=== PATIENT | male | born 1940 | race Caucasian/White ===

== ENCOUNTER 2018-10-29 07:08 | Inpatient (IN) ==
--- NOTE | 2018-10-29 07:47 | PROVIDER DOCUMENTATION ---
HPI-General Adult - General Chief Complaint: Cold Symptoms Stated Complaint: COUGH,FEVER Time Seen by Provider: 10/29/18 07:33 Source: patient, family Allergies/Adverse Reactions: Patient Allergies Allergy/AdvReac Type Severity Reaction Status Date / Time No Known Allergies Allergy Verified 10/29/18 07:37 Home Medications: Home Medication List Medication Instructions Recorded Confirmed Last Taken Type ATORVAstatin [Lipitor] 10 mg PO DAILY 11/05/12 10/29/18 10/28/18 History Aspirin 81 mg PO DAILY 11/05/12 10/29/18 10/28/18 History Hydrochlorothiazide 25 mg PO DAILY 11/05/12 10/29/18 10/28/18 History Amlodipine [Norvasc] 10 mg PO DAILY 10/04/18 10/29/18 10/28/18 History Metformin [Glucophage] 500 mg PO BID CC 10/04/18 10/29/18 10/28/18 History Tamsulosin [Flomax] 0.4 mg PO BID 10/04/18 10/29/18 10/28/18 History - History of Present Illness -Gen Adult Nature of Presenting Problems: patient complained sweating, hacking cough and stumbling since last night, no pain was reported. in addtion, patient complained urinary frequency with dysuria and urgency, history of recent bladder surgery. no fever was reported. Pain Radiation: reports: no radiation Quality of Pain: reports: none Onset/Duration: reports: 2 days ago Timing: reports: still present Context/Activities at Onset: reports: cold exposure Modifying Factors: improves with: nothing Associated Symptoms: reports: cough, diarrhea, genitourinary problems, malaise. denies: anxiety, arm pain, back/neck pain, chest pain, constipation, dizziness , EENT symptoms, fatigue, fever/chills, headaches, heartburn, joint pain, sinus congestion/drainage, nausea, seizure, shortness of breath, sensory/motor loss, pain with inspiration, swelling/mass in abdomen, syncope, vomiting Similar Symptoms Previously?: No Recently seen or treated by another doctor?: No - Diabetes Related Context Context: denies: prior DKA hospitalization Review of Systems - Adult - REVIEW OF SYSTEMS - ADULT Constitutional: reports: chills. denies: fever Eyes: reports: no symptoms reported Ears, Nose, Mouth & Throat: reports: no symptoms reported Cardiovascular: reports: no symptoms reported Respiratory: reports: cough Gastrointestinal: reports: diarrhea Genitourinary: reports: dysuria, urgency Musculoskeletal: reports: no symptoms reported Integumentary: reports: no symptoms reported Neurological: reports: no symptoms reported Psychiatric: reports: no symptoms reported. denies: anxiety Endocrine: reports: no symptoms reported Hematologic/Lymphatic: reports: no symptoms reported Allergic/Immunologic: reports: no symptoms reported Past History - Adult - PAST MEDICAL HISTORY-ADULT Review of Records: reports: Nursing Assessment Review Cardiovascular: reports: HTN. denies: cardiac disease, CAD, CHF Respiratory: denies: asthma, bronchitis, COPD Gastrointestinal: denies: cholelithiasis Musculoskeletal: denies: arthritis, fibromyalgia Neurological: denies: cognitive dysfunction, CVA Psychiatric: reports: denies history Endocrine/Immune: reports: Diabetes - PRIOR SURGERIES/PROCEDURES Surgical/Procedure History: denies: CABG - SOCIAL HISTORY Smoking: non-smoker Substance Use: none/never Alcohol Use Frequency: never Physical Exam-General - PHYSICAL EXAM-ADULT Initial Vital Signs Reviewed: Yes - CONSTITUTIONAL General Appearance: appears well, alert, no apparent distress - EYES Eyes: PERRL/EOMI - HEAD, EARS, NOSE, MOUTH & THROAT HENMT: normocephalic/atraumatic. 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, grossly normal, no motor/sensory deficits - PSYCHIATRIC Psych/Mental Status: normal mood/affect Progress - PLAN OF CARE/RESULTS Progress/Plan/Lab Results: Vital Signs - 8 hr 10/29/18 07:16 Temperature 97.6 F Pulse Rate 127 H Respiratory Rate 18 Blood Pressure 158/90 O2 Sat by Pulse Oximetry 97 Result Diagrams: 10/29/18 08:00 10/29/18 08:00 Departure - Departure Date of Disposition Decision: 10/29/18 Time of Disposition Decision: 08:21 DIAGNOSIS: UTI (urinary tract infection), Leukocytosis Disposition: ADMITTED INPATIENT 09 Certified Medical Emergency: Emergent Condition: Stable - Critical Care Note This patient required my direct & personal management of CC.: No Attestation - Physician/ BIJAL Attestation The physician spent face to face time with patient:: Yes Advanced Practice Provider documentation review:: Supervising physician onsite and consulted in the evaluation and care of this patient. The physician did have a face to face encounter with the patient.
[2018-10-29 08:15] LABS: URINE SOURCE CLEAN CATCH
[2018-10-29 08:31] LABS: ALB/GLOB RATIO 1.1; ALBUMIN 3.8 g/dL (3.5-5.0); CALCIUM 9.5 mg/dL (8.8-10.2); CREATININE 1.4 mg/dL (0.7-1.2); POTASSIUM 4.2 mmol/L (3.5-5.1); TOTAL BILIRUBIN 0.76 mg/dL (0.20-1.00); TOTAL PROTEIN 7.4 g/dL (6.3-8.3)
[2018-10-29 08:42] LABS: BASO# 0.01 X1000 (0.0-0.2); HEMATOCRIT 43.9 % (42.0-52.0); HEMOGLOBIN 14.5 g/dL (14.0-18.0); IMM GRAN# 0.07 X1000 (0.0-0.04); IMM GRAN% 0.3 % (0.0-0.5); LYMPH# 1.63 X1000 (1.2-3.4); LYMPH% 7.8 % (20.5-51.1); MCH 28.7 PG (27-31); MCV 86.9 FL (81-99); MONO# 1.46 X1000 (0.11-0.59); MPV 9.7 FL (7.4-10.4); NEUT# 17.77 X1000 (1.4-6.5); NEUT% 84.9 % (42.2-75.2); PLT 321 X1000 (130-400); RBC 5.05 XMIL (4.7-6.1); RDW 13.7 % (11.5-14.5); WBC 20.94 X1000 (4.8-10.8)
[2018-10-29 08:43] LABS: BILIRUBIN URINE NEGATIVE (NEGATIVE); BLOOD URINE MODERATE (NEGATIVE); COLOR ORANGE; GLUCOSE URINE NEGATIVE (NEGATIVE); KETONE URINE NEGATIVE (NEGATIVE); LEUKOCYTES URINE LARGE (NEGATIVE); NITRITE URINE POSITIVE (NEGATIVE); PROTEIN URINE 70 mg/dL (NEGATIVE); SP GRAVITY URINE 1.013; TURBIDITY URINE TURBID (CLEAR); UROBILINOGEN URINE NORMAL (NORMAL)
[2018-10-29 08:49] LABS: UR EPITHELIAL CELLS <10 /HPF (<10); URINE BACTERIA 4+ /HPF; URINE WBC TNTC /HPF (<10)
[2018-10-29 08:52] LABS: URINE YEAST NONE SEEN
[2018-10-29] MEDS ORDERED: ZOSYN 3.375 GM in NS 50 ML IV ONE (09:11)
[2018-10-29] MEDS ORDERED: NS 1,000 ML IV ONE (09:16)
--- NOTE | 2018-10-29 09:55 | Diag Imaging Result Doc PS360 ---
EXAM: CHEST-1 VIEW HISTORY: cough TECHNIQUE: Chest single view COMPARISON: 06/04/2013 FINDINGS: The lungs are poorly expanded. The heart is not enlarged. The vessels are not distended. There are no infiltrates. No effusion identified. IMPRESSION: No pneumonia. Follow-up PA and lateral may be beneficial. Electronically signed by Richie Silvestre 10/29/2018 9:52 AM
[2018-10-29] MEDS ORDERED: TYLENOL PO PRN (10:17)
--- NOTE | 2018-10-29 10:55 | HISTORY AND PHYSICAL ---
PRIMARY CARE PROVIDER: Dr. Madhu Torres. PRIMARY UROLOGIST: Dr. Tito Rahman. CHIEF COMPLAINT: Chills with frequency and burning in urination. HISTORY OF PRESENT ILLNESS: Mr. Magdaleno Casey is a 78-year-old, male, with a medical history of urothelial carcinoma and left ureteral reimplant. He most recently had a bladder tumor removed on 10/10/[address] Rahman. He states that for about one week he has had burning with his urination. There is no foul smell but he has frequency with small volume. And for at least three days he has had chills and a dry cough. He never took his temperature. He denies any other symptoms. White count 20.0. Lactate is normal but he is definitely positive for urinary tract infection. He is tachycardic as well. We will admit to the medical floor. Treat him with IV antibiotics and IV fluids. I will consult Dr. Rahman for any other recommendation. PAST MEDICAL HISTORY: 1. Morbid obesity with BMI of 37.3. 2. Hypertension. 3. BPH. 4. Hyperlipidemia. 5. GERD. 6. Obstructive sleep apnea. No CPAP. 7. Urothelial carcinoma with left ureteral reimplant. 8. Recent bladder tumor with removal. 9. Diabetes mellitus type 2. PAST SURGICAL HISTORY: 1. Left ureteral reimplant. 2. On 10/10/2018, had bladder tumor removed. 3. Left rotator cuff. 4. Bilateral inguinal hernia repair. 5. TURP. 6. Vasectomy. 7. Left knee arthroplasty. 8. Back surgery. 9. Bilateral cataract surgery. SOCIAL HISTORY: Quit smoking in 1962. Denies alcohol or illicit drug use. Currently his is a patient here as well. His two sons are at the bedside. FAMILY HISTORY: Mother had no medical conditions. Father had cancer of unknown source due to it being metastasized by the time they found it. ALLERGIES: NO KNOWN DRUG ALLERGIES. HOME MEDICATIONS: Have not been verified or reconciled. But it looks like back in September he was on: 1. Norvasc 10 mg p.o. daily. 2. Aspirin 81 mg p.o. daily. 3. Lipitor 10 mg p.o. daily. 4. Vitamin D3 1000 units p.o. daily. 5. Vitamin B12 2500 mcg sublingual daily. 6. Hydrochlorothiazide 25 mg p.o. daily. 7. Metformin 500 mg p.o. twice daily. 8. Multivitamin once daily. 9. Flomax 0.4 mg p.o. twice daily. 10.Tumeric extract 500 mg p.o. daily. 11.Danevang 7.5 mg a.4 hours p.r.n. REVIEW OF SYSTEMS: A 14 point review of systems are complete. All are negative except those mentioned above in HPI. He had chills for three days with a dry cough. Burning and frequency with small amount of volume in urination for at least one week. PHYSICAL EXAM: VITAL SIGNS: Temperature 97.6 degrees Fahrenheit, heart rate 127, respiratory rate 18, blood pressure 158/98. O2 saturation 97% on room air. Height 5 feet 10 inches tall. Weight 260 pounds. BMI is 37.3. GENERAL: Mr. Magdaleno Casey is a 78-year-old, male. He is in no acute distress. He is able to answers questions appropriately. HEENT: Atraumatic/normocephalic. Pupils are equal, round and reactive to light. Extraocular movements are intact. Mucous membranes are dry. NECK: Trachea is midline. CARDIOVASCULAR: S1, S2. Tachycardic rate rhythm. No rubs, gallops, murmurs. Trace lower extremity edema. Plus two dorsalis and radial pulses. Negative JVD or carotid bruits. PULMONARY: Clear to auscultation. Bilateral breath sounds. No accessory muscle use or work of breathing noted. GASTROINTESTINAL: Soft, round, nontender, nondistended. Positive bowel sounds x4. EXTREMITIES: Moves all extremities equally with full range of motion. NEUROLOGIC: Awake, alert and oriented x3. Sensory is intact. SKIN: Warm, dry and intact. LABORATORY DATA: White blood cells 20.0, hemoglobin 14, hematocrit 43, platelet count 321,000. Sodium 137, potassium 4.2, BUN 16, creatinine 1.4, glucose 184, calcium 9.5, bilirubin 0.76, AST 16, ALT 19, albumin 3.8. Serum lactate 1.4. Urinalysis: 70 protein, moderate blood, positive nitrites, large leukocytes, too numerous to count white blood cells, 10-20 red blood cells, 4+ bacteria, no yeast. IMAGING: Chest x-ray clear. IMPRESSION AND PLAN: 1. Urinary tract infection with signs of sepsis, although lactate is normal. Heart rate was elevated. He received 1 L of fluids and we will start him on Zosyn. I will also consult Dr. Rahman for any recommendations as he most recently had a bladder tumor removed on 10/10/[address] Rahman. 2. Hypertension. We will resume antihypertensives once they are verified. 3. Hyperlipidemia. We are going to recheck a cholesterol level and resume medication once verified. 4. Gastroesophageal reflux disease. We will continue with ProTime pump inhibitor. 5. Diabetes mellitus type 2. We will check a hemoglobin A1c. He states he does not have diabetes, but his home medications include metformin, so we will do pattern blood glucoses and sliding-scale insulin. 6. Deep venous thrombosis prophylaxis. Lovenox. Patient seen and examined by me face to face, all the laboratory, vitals signs and images were reviewed, patient presented to the emergency department with signs of urinary tract infection, he recently had a bladder tumor removed last month, he will be placed on antibiotics, physical exam showed mild discomfort at the level of the suprapubic area, Urology department will be consulted, I agree with the MANAGER OF [employer]ENT's assessment and plan, Danny Lainez MD. Dictated by SABIHA Choi for Danny Ashby MD cc: SABIHA Choi MD David Francis, MD William E. Hughes, MD [facility] HOSPITALPaul
[2018-10-29] MEDS: ZOFRAN IV PRN (11:40)
[2018-10-29] MEDS: NS 1,000 ML IV SCH (11:45)
[2018-10-29] MEDS: HUMULIN R SUBQ SCH ×3 (12:05→21:27)
[2018-10-29] MEDS: ZOSYN 3.375 GM in NS 50 ML IV SCH ×2 (15:27→21:27)
--- NOTE | 2018-10-29 19:23 | CONSULTATION ---
DATE OF CONSULTATION: 10/29/2018 ATTENDING AND REFERRING PHYSICIAN: Hospitalist. HISTORY OF PRESENT ILLNESS: This 78-year-old male has a history of urothelial carcinoma. He is status post left distal ureterectomy and reimplant in 2012 for left distal ureteral urothelial carcinoma. On recent routine followup, he was noted to have red, flat papillary-like lesions in the bladder. He underwent resection of these on 10/10/2018. Pathology was all benign. He was admitted with a 1-week history of irritative voiding symptoms. He states he had increased frequency and dysuria. He occasionally had some hematuria but that was clearing. Evaluation here with urinalysis revealed [id number]-[id number]-count white cells, 10 to 20 red cells and 4+ bacteria. His white count was also elevated. He was admitted for IV antibiotics. PAST MEDICAL HISTORY: Hypertension, elevated cholesterol, gastroesophageal reflux disease, obesity, sleep apnea, diabetes. CURRENT MEDICATIONS: Documented on the chart. PAST SURGICAL HISTORY: As noted in the HPI. Left rotator cuff surgery, bilateral inguinal hernia repair, transurethral resection of the prostate, left knee arthroplasty, lower back surgery, cataract surgery, vasectomy. SOCIAL HISTORY: He denies tobacco use (not for many years). He denies alcohol use. ALLERGIES: No known drug allergies. REVIEW OF SYSTEMS: He states he was doing well until 1 week ago when he developed significant irritative voiding symptoms. He denies any recent pulmonary or bowel problems. He has had no chest pains. PHYSICAL EXAMINATION: General: An obese, age apparent, normally developed, white male, oriented in all ways and cooperative. HEENT: Normal for age. Lungs: Clear. Cardiovascular: Regular rate and rhythm. Grade 2/6 systolic ejection murmur. Abdomen: Very obese, soft, nontender. No hepatosplenomegaly or masses. Normal bowel sounds. : Reveals normal uncircumcised male. Foreskin retracts. Both testes are down. Small bilateral hydroceles. Small left spermatocele. Rectal: Deferred today but on 10 October his prostate was smooth and symmetric without nodules. Extremities: No C, C or E. Neurologic: No focal deficits. LABORATORY EVALUATION: Has a white count of 20.94, hemoglobin of 14.5, a hematocrit of 43.9 and platelets are 321,000. Serum electrolytes are essentially normal. BUN 16, creatinine 1.4, glucose was 184. Urinalysis is as noted in the HPI. Urine cultures are pending. IMPRESSION: 1. Probable urinary tract infection. 2. History of urothelial carcinoma. 3. Enlarged prostate with obstructive voiding. RECOMMEND: 1. Continue IV antibiotics. 2. Culture specific antibiotics when the culture results are available. 3. Continue Flomax 0.4 mg b.i.d. Thank you for this consultation. cc: Tito Rahman MD
[2018-10-29] MEDS: PRILOSEC PO SCH (21:26)
[2018-10-29] MEDS: FLOMAX PO SCH (21:26)
[2018-10-30] MEDS: ZOSYN 3.375 GM in NS 50 ML IV SCH ×3 (03:29→17:33)
[2018-10-30] MEDS: HUMULIN R SUBQ SCH ×4 (07:01→21:42)
[2018-10-30 08:09] LABS: BASO# 0.02 X1000 (0.0-0.2); BASO% 0.1 % (0.0-0.8); EOS# 0.08 X1000 (0.0-0.7); EOS% 0.5 % (0.0-10.0); HEMATOCRIT 40.5 % (42.0-52.0); HEMOGLOBIN 13.2 g/dL (14.0-18.0); IMM GRAN# 0.05 X1000 (0.0-0.04); IMM GRAN% 0.3 % (0.0-0.5); LYMPH# 1.63 X1000 (1.2-3.4); LYMPH% 9.5 % (20.5-51.1); MCH 28.9 PG (27-31); MCHC 32.6 g/dL (33-37); MCV 88.6 FL (81-99); MONO# 1.31 X1000 (0.11-0.59); MONO% 7.6 % (1.7-9.3); MPV 9.7 FL (7.4-10.4); NEUT# 14.12 X1000 (1.4-6.5); PLT 281 X1000 (130-400); RBC 4.57 XMIL (4.7-6.1); WBC 17.21 X1000 (4.8-10.8)
[2018-10-30 08:18] LABS: HEMOGLOBIN A1C 6.2 % (4.8-6.0)
[2018-10-30 08:33] LABS: INR 1.18; PTT 37.5 Seconds (22.3-41.8)
[2018-10-30] MEDS: LOVENOX SUBQ SCH (09:42)
[2018-10-30] MEDS: PRILOSEC PO SCH ×2 (09:42→21:41)
[2018-10-30] MEDS: NORVASC PO SCH (09:43)
[2018-10-30] MEDS: FLOMAX PO SCH ×2 (09:43→21:41)
[2018-10-30 09:56] LABS: ALB/GLOB RATIO 0.8; CALCIUM 8.4 mg/dL (8.8-10.2); CREATININE 1.4 mg/dL (0.7-1.2); MAGNESIUM 2.1 mg/dL (1.5-2.7); POTASSIUM 3.5 mmol/L (3.5-5.1); TOTAL BILIRUBIN 0.56 mg/dL (0.20-1.00); TOTAL PROTEIN 6.9 g/dL (6.3-8.3)
[2018-10-30] MEDS: HYDROCHLOROTHIAZIDE PO SCH (12:50)
--- NOTE | 2018-10-30 13:45 | PROGRESS NOTE ---
DATE: 10/30/2018 SUBJECTIVE: Patient reports feeling fine. Reports less general malaise and fever. No other complaints noted. OBJECTIVE: Vital Signs: Temperature 98.1 degrees, heart rate 92, respiratory rate 20, blood pressure 136/57, O2 saturation 99% 2 L nasal cannula. General examination: This is a 78-year- old male, lying in bed in no acute distress. HEENT: Head is normocephalic, atraumatic. Neck: No JVD noted. No carotid bruits. No lymphadenopathy. No thyromegaly. Cardiovascular exam: S1, S2 heard. No murmurs, gallops, or rubs. Regular rate and rhythm. Respiratory exam: Clear bilaterally to auscultation. No work of breathing or using accessory muscles. Abdomen: Soft. Tenderness to palpation in the suprapubic area. No signs of peritoneal irritation. Extremities: No clubbing, cyanosis, or edema. Peripheral pulses present in both legs. Neurological exam: Patient is alert and oriented x3. Moves 4 extremities. LABORATORY DATA: White cell count 17.21, hemoglobin 13.2, hematocrit 40.5, platelets 381 with BMP that is remarkable for creatinine 1.4. Glucose 128. A1c of 6.2. MICROBIOLOGY: Shows gram- negative rods in 1/2 blood cultures. ASSESSMENT AND PLAN: 1. Gram-negative sepsis secondary to urinary tract infection. Patient is receiving intravenous fluids. Patient is currently on Zosyn. He had recent bladder tumor removal 2 to [address] Rahman. He has been consulted. 2. Hypertension. Blood pressure is actually under control with current medications. We will continue with the same management. 3. Hyperlipidemia. We are going to continue with home medication. Cholesterol is 117. 4. Gastroesophageal reflux disease. We will continue with Protonix. 5. Diabetes mellitus type 2. Hemoglobin A1c is 6.2 which means well diabetes control. We will continue with Accu-Cheks and also sliding scale insulin. 6. Deep vein thrombosis prophylaxis. Patient is on Lovenox. 7. Disposition: At this point, we will wait for results of the blood cultures. We will consult Dr. Christian Do. We will continue to monitor this patient closely, monitoring also complete blood count daily. cc: Clive Enriquez MD
--- NOTE | 2018-10-30 15:58 | INFECTIOUS DISEASE CONSULT REP ---
DATE: 10/30/2018 CONCLUSION: Patient has a gram-negative jj bacteremia which I think originates from a gram- negative jj urinary tract infection. RECOMMENDATIONS: I have switched the patient from Zosyn to cefepime. I am going to go ahead and obtain some studies of the patient's kidneys and bladder to make sure that there is not some blockage or abscess involved. DISCUSSION: The patient tells me that approximately 3 days ago he developed dysuria, fever, and sweats. He was not coughing. He has not had diarrhea. His laboratory studies show a CBC with a white count of 17,210, hemoglobin 13.2, and platelet count of 281,000. Creatinine is 1.4. GFR is 49. Liver function studies are normal. Chest x-ray shows clear lung hodges. Urinalysis shows white cells and bacteria. Both blood and urine are growing gram-negative rods. PAST MEDICAL HISTORY/REVIEW OF SYSTEMS: Eyes and ears: Patient has decreased hearing but his vision is good. Neck: Not stiff. Respiratory: No cough or shortness of breath. GI: Patient has not had a stool in 3 days. Before that he was having regular stools for him. Genitourinary: See present illness. Bones, joints, muscles: No joint swelling or muscle aching. Endocrine: Patient has diabetes but not thyroid disease. Neurologic: No seizures. No recent loss of motor or sensory function. PREVIOUS HOSPITALIZATIONS AND OPERATIONS: He has had bladder surgeries, a left total knee arthroplasty, and 2 shoulder operations. MEDICAL DISEASES: Positive for hypertension, bladder tumors, hyperlipidemia, diabetes mellitus, deep venous thrombosis, gastroesophageal reflux disease, and benign prostatic hypertrophy. INFECTIOUS DISEASE HISTORY: Negative for pneumonia and UTI. FAMILY HISTORY: Positive for hypertension and cancer. SOCIAL HISTORY: [place] He lives with his family. He does not smoke cigarettes, drink alcoholic beverages, or abuse drugs. He has a dog as a pet. ALLERGIES: His chart lists no known drug allergies. HOME MEDICATIONS: Include the following: Norvasc, aspirin, Lipitor, hydrochlorothiazide, Glucophage, and Flomax. PHYSICAL EXAMINATION: Vital Signs: Temperature is 98.1 degrees, pulse 92, respirations 20, blood pressure 136/57. Patient is 5 feet 10 inches tall, weighs 263 pounds. General: This is an elderly, obese male. He is in no acute distress at this time. Head, eyes, ears, nose, throat: He can see near objects. He has decreased hearing. He does not have any white coating on his tongue. Neck: No meningismus. Thorax: Increased AP diameter of the chest. Lungs: Clear to auscultation. Cardiovascular: Heart rate is regular. Abdomen: Soft and nontender. Neurologic: The patient is awake. He can move his extremities. There is no tremor. He has decreased hearing. As regarding his memory, the patient had decreased memory when he came to his own medical history. Integument: No rash. Thank you for the consult. cc: Christian Do MD
[2018-10-30] MEDS: MAXIPIME 2 GM in NS 100 ML IV SCH (17:28)
[2018-10-30] MEDS: NS 1,000 ML IV SCH ×3 (17:29→23:24)
--- NOTE | 2018-10-30 17:48 | Diag Imaging Result Doc PS360 ---
EXAM: CT RENAL STONE SEARCH 10/30/2018 HISTORY: UTI TECHNIQUE: This exam was performed using automated exposure control, adjustment of mA or kV according to patient size, and/or use of iterative reconstruction technique. COMMENT: There is bibasilar atelectatic change. There is some mild bronchiectasis present in the right lower lobe. These findings were also present at the time the previous study of 06/04/2013. There is an apparent cyst posteriorly in the right lobe of the liver which was also present previously. There is bilateral perinephric stranding worse on the left than the right with left hydronephrosis. This was also present at the time the previous study. A stent was present at the time the previous examination. The urinary bladder is distended. The left ureter appears to have been implanted in the upper left anterior portion of the urinary bladder. There is some presacral edema which was also present previously. The prostate gland is enlarged measuring 6.1 cm in transverse dimension compared to 5.6 cm previously. There is a fat-containing right inguinal hernia. There is some stool in the colon. The appendix is normal in appearance. Small bowel is not distended. There are some calcifications in the pancreatic head which may be due to previous pancreatitis. There are no apparent gallstones. There is ankylosis of the sacroiliac joints. No evidence of acute bony abnormality is present. IMPRESSION: Chronic hydronephrosis on the left. The possibility of bladder outlet obstruction cannot be excluded. Worsened prostatic enlargement. Electronically signed by Mele Curry 10/30/2018 5:46 PM
[2018-10-30] MEDS: LIPITOR PO SCH (21:41)
[2018-10-31] MEDS: MAXIPIME 2 GM in NS 100 ML IV SCH (02:29)
[2018-10-31] MEDS: HUMULIN R SUBQ SCH ×4 (07:42→21:23)
[2018-10-31] MEDS: NS 1,000 ML IV SCH ×2 (07:42→16:47)
[2018-10-31] MEDS: LOVENOX SUBQ SCH (09:43)
[2018-10-31] MEDS: ASPIRIN PO SCH (09:43)
[2018-10-31] MEDS: HYDROCHLOROTHIAZIDE PO SCH (09:44)
[2018-10-31] MEDS: PRILOSEC PO SCH ×2 (09:44→21:28)
[2018-10-31] MEDS: NORVASC PO SCH (09:44)
[2018-10-31] MEDS: FLOMAX PO SCH ×2 (09:44→21:28)
[2018-10-31 09:56] LABS: BASO# 0.01 X1000 (0.0-0.2); BASO% 0.1 % (0.0-0.8); EOS# 0.13 X1000 (0.0-0.7); EOS% 1.2 % (0.0-10.0); HEMATOCRIT 38.4 % (42.0-52.0); HEMOGLOBIN 12.7 g/dL (14.0-18.0); IMM GRAN# 0.02 X1000 (0.0-0.04); IMM GRAN% 0.2 % (0.0-0.5); LYMPH# 0.99 X1000 (1.2-3.4); LYMPH% 9.5 % (20.5-51.1); MCH 28.8 PG (27-31); MCHC 33.1 g/dL (33-37); MCV 87.1 FL (81-99); MONO# 0.83 X1000 (0.11-0.59); MPV 9.6 FL (7.4-10.4); NEUT# 8.46 X1000 (1.4-6.5); PLT 283 X1000 (130-400); RBC 4.41 XMIL (4.7-6.1); RDW 13.4 % (11.5-14.5); WBC 10.44 X1000 (4.8-10.8)
[2018-10-31 10:44] LABS: AGAP 11; BUN 16 mg/dL (8-22); CALCIUM 8.5 mg/dL (8.8-10.2); CHLORIDE 96 mmol/L (98-107); COSMO 271; CREATININE 1.1 mg/dL (0.7-1.2); ESTIMATED GFR > 60; GLUCOSE 196 mg/dL (70-104); POTASSIUM 3.4 mmol/L (3.5-5.1); SODIUM 132 mmol/L (136-145); TCO2 25 mmol/L (25-35)
[2018-10-31] MEDS ORDERED: KLOR-CON PO ONE (11:37)
--- NOTE | 2018-10-31 11:59 | PROGRESS NOTE ---
DATE: 10/31/2018 SUBJECTIVE: Patient reports feeling much better. Denies any general malaise, fever, or chills. OBJECTIVE: Vital Signs: Temperature 98.3 degrees, heart rate 93, respiratory rate 20, blood pressure 161/66, O2 saturation 98% on 2 L nasal cannula. General: This is a chronically ill- looking, 78-year-old male, lying in bed, in no acute distress. HEENT: Head is normocephalic, atraumatic. Neck: No JVD noted. No carotid bruits. No lymphadenopathy. No thyromegaly. Cardiovascular: S1, S2 heard. No murmurs, gallops, or rubs. Regular rate and rhythm. Respiratory: Clear bilaterally to auscultation. No work of breathing or using accessory muscles. Abdomen: Soft, tenderness to palpation in the suprapubic area. Same in comparing with yesterday. No signs of peritoneal irritation. Extremities: No clubbing, cyanosis, or edema. Peripheral pulses present in both legs. Neurological: Patient alert and oriented x3. Moves 4 extremities. LABORATORY DATA: White cell count is 10.44, hemoglobin 12.7, hematocrit 38.4, platelets 283,000. Sodium 132, potassium 3.4, creatinine 1.1, and glucose 196. ASSESSMENT AND PLAN: 1. Escherichia coli bacteremia. Patient is receiving cefepime as per Dr. Do' recommendations. It is important to remark that he had a recent bladder tumor removal 2 to 3 weeks ago. At this point, we will leave the decision to Dr. Do to decide what antibiotic this patient will need and for how long. The microbiology reported blood culture and urine culture revealed Escherichia coli sensitive to levofloxacin. We will follow recommendations from Dr. Do. 2. Hypertension. Blood pressure is under control. We will continue with the same medication. 3. Hyperlipidemia. We will continue with home medications. Cholesterol is 117. 4. Gastroesophageal reflux disease. We will continue with Protonix. 5. Diabetes mellitus type 2. That condition is well controlled. Actually, the hemoglobin A1c 6.2. We will continue with Accu-Chek before meals and also at bedtime and sliding scale insulin as well. 6. Deep vein thrombosis prophylaxis. Patient is on Lovenox. 7. Disposition. At this point, we will see what antibiotics Dr. Do wants to use for this patient and for how long, we will follow recommendations. cc: Clive Enriquez MD
--- NOTE | 2018-10-31 15:55 | INFECTIOUS DISEASE PROGRESS NO ---
DATE: 10/31/2018 PRESENT ILLNESS: Mr. Casey has an Escherichia coli urinary tract infection with an associated bacteremia. MEDICATIONS: He has been receiving cefepime 2 g IV every 12 hours, and before that, he was receiving IV Zosyn. PHYSICAL EXAMINATION: Vital Signs: Temperature is 97.9 degrees, pulse rate 93 , respiratory rate 20, blood pressure 143/65, O2 saturation 95% on room air. General: This is an elderly obese gentleman. He is sitting up on the side of the bed, currently in no acute distress. HEENT: Atraumatic, normocephalic. Oral mucous membranes are pink and moist. Conjunctivae are pink. Neck: Supple. Trachea is midline. Cardiovascular: Heart rate and rhythm are regular. Normal sinus rhythm on the monitor. Radial and pedal pulses are palpable bilaterally. There is a 1+ pretibial edema bilaterally. Respiratory: Lung sounds are clear to auscultation. Abdomen: Soft, obese, and nontender. Bowel sounds are active. Neurologic: He is awake , alert, and oriented. Ambulating in the room without assistance, stable on his feet. DIAGNOSTIC STUDIES: Today his white count is 10.44, hemoglobin 12.7, platelet count 283,000. Creatinine 1.1, estimated GFR is greater than 60. His urine culture has grown an Escherichia coli which has identical susceptibilities as the E coli that has grown in his blood. A renal CT scan done yesterday shows chronic hydronephrosis on the left with the possibility of bladder outlet obstruction and worsened prostatic enlargement. ASSESSMENT AND PLAN: Mr. Casey has an Escherichia coli urinary tract infection and bacteremia. He is a patient of Dr. Rahman and has recently had surgery for bladder biopsies and transurethral resection of a bladder tumor done on 10/10/2018. He has been receiving cefepime which we will discontinue at this time, and start him on Levaquin 500 mg by mouth daily. Unfortunately he does have a history of a left knee arthroplasty and will require 6 weeks of treatment for his bacteremia. A set of blood cultures has been put in for in the morning so that we can have a sterile set for baseline. Once sterile cultures are obtained, the patient should be able to be discharged home with Levaquin by mouth daily for a total of 6 weeks. These plans have been discussed with and recommended by Dr. Do. COMORBIDITIES: For Mr. Casey include that he is elderly and obese, with gastroesophageal reflux disease, diabetes mellitus, and recent bladder tumor removal. Dictated by SABIHA Tang for Christian Do MD This chart was documented by, SBAIHA Tang and accurately reflects the services performed, treatment plan and medical decisions as attested by the providers signature Christian Do MD. cc: Christian Do MD [facility]
[2018-10-31] MEDS: MIRALAX PO SCH ×2 (16:45→21:27)
[2018-10-31] MEDS: LEVAQUIN PO SCH (16:49)
[2018-10-31] MEDS: LIPITOR PO SCH (21:28)
[2018-11-01] MEDS: NS 1,000 ML IV SCH ×2 (05:46→20:08)
[2018-11-01] MEDS: HUMULIN R SUBQ SCH ×4 (06:23→22:12)
[2018-11-01 08:11] LABS: BASO# 0.01 X1000 (0.0-0.2); BASO% 0.1 % (0.0-0.8); EOS# 0.12 X1000 (0.0-0.7); EOS% 1.3 % (0.0-10.0); HEMATOCRIT 38.3 % (42.0-52.0); HEMOGLOBIN 12.7 g/dL (14.0-18.0); IMM GRAN# 0.02 X1000 (0.0-0.04); IMM GRAN% 0.2 % (0.0-0.5); LYMPH# 1.29 X1000 (1.2-3.4); LYMPH% 13.8 % (20.5-51.1); MCH 28.9 PG (27-31); MCHC 33.2 g/dL (33-37); MONO# 0.83 X1000 (0.11-0.59); MONO% 8.9 % (1.7-9.3); MPV 9.4 FL (7.4-10.4); NEUT# 7.05 X1000 (1.4-6.5); NEUT% 75.7 % (42.2-75.2); PLT 313 X1000 (130-400); RDW 13.3 % (11.5-14.5); WBC 9.32 X1000 (4.8-10.8)
[2018-11-01 08:39] LABS: AGAP 14; BUN 15 mg/dL (8-22); CALCIUM 8.6 mg/dL (8.8-10.2); CHLORIDE 95 mmol/L (98-107); COSMO 277; ESTIMATED GFR > 60; GLUCOSE 215 mg/dL (70-104); POTASSIUM 3.6 mmol/L (3.5-5.1); SODIUM 135 mmol/L (136-145); TCO2 26 mmol/L (25-35)
[2018-11-01] MEDS: NORVASC PO SCH (10:00)
[2018-11-01] MEDS: PRILOSEC PO SCH ×2 (10:00→20:10)
[2018-11-01] MEDS: FLOMAX PO SCH ×2 (10:00→20:10)
[2018-11-01] MEDS: HYDROCHLOROTHIAZIDE PO SCH (10:00)
[2018-11-01] MEDS: LEVAQUIN PO SCH (10:00)
[2018-11-01] MEDS: ASPIRIN PO SCH (10:00)
[2018-11-01] MEDS: LOVENOX SUBQ SCH (10:01)
[2018-11-01] MEDS: MIRALAX PO SCH ×2 (10:01→22:12)
--- NOTE | 2018-11-01 15:36 | PROGRESS NOTE ---
DATE: 11/01/2018 SUBJECTIVE: Patient reports feeling fine. Denies any fever or chills. OBJECTIVE: Vital Signs: Temperature 97.7 degrees, heart rate 86, respiratory rate 20, blood pressure 149/75, O2 saturation 97% on 2 L nasal cannula. General: This is a chronically ill- appearing, 78-year-old male, lying in bed, in no acute distress. Cardiovascular: S1, S2 heard. No murmurs, gallops, or rubs. Regular rate and rhythm. Respiratory: Clear bilaterally to auscultation. No work of breathing or using accessory muscles. Abdomen: Soft. Nontender to palpation. Bowel sounds present. No organomegaly. Extremities: No clubbing, cyanosis, or edema. Peripheral pulses present in both legs. Neurological: Patient is alert and oriented x3. Moves 4 extremities. LABORATORY DATA: White count 9.32, hemoglobin 12.7, hematocrit 38.3, platelets 313,000. Normal BMP except glucose 215. ASSESSMENT AND PLAN: 1. Escherichia coli bacteremia. Dr. Do from Infectious Disease is following this patient. The blood culture shows E. coli sensitive to Levaquin, so he has been started on Levaquin p.o. 500 mg p.o. daily. He will need 6 weeks of antibiotics. They have order another blood culture that if it is negative the patient can be discharged with oral Levaquin for 6 weeks. 2. Hypertension. Blood pressure is under control. We will continue with same medications. 3. Hyperlipidemia, stable. We will continue home medications. 4. Gastroesophageal reflux disease. Patient is receiving Protonix. We will continue with the same medications. 5. Deep vein thrombosis prophylaxis. Patient is on Lovenox. 6. Disposition. We will see if blood cultures are negative and patient can be discharged on oral Levaquin. cc: Clive Enriquez MD
--- NOTE | 2018-11-01 18:52 | INFECTIOUS DISEASE PROGRESS NO ---
DATE: 11/01/2018 PRESENT ILLNESS: The patient has an E. coli urinary tract infection with an associated bacteremia. Unfortunately, he has a left total knee arthroplasty which may have become infected hematogenously. MEDICATIONS: The patient was switched yesterday from cefepime to Levaquin. PHYSICAL EXAMINATION: Vital Signs: Temperature is 97.7 degrees, pulse 86, respirations 20, blood pressure 149/75. General: This is a somewhat ill-appearing, elderly, obese male. He is in no acute distress. Head, eyes, ears, nose, throat: He can hear my spoken words and see near objects. There is no drainage from the nose or ears. His tongue does not have any white coating on it. Neck: No meningismus. Lungs: Clear to auscultation. Cardiovascular: Heart rate is regular. Abdomen: Soft and nontender. Bones, joints, muscles: Both knees are not swollen and there is no pain with movement. Neurologic: The patient is awake. He can move his extremities. There is no tremor. LAB AND X-RAY: The patient's CBC today showed a white count of 9,320, hemoglobin 12.7, and platelet count 313,000. Creatinine is 1. GFR is greater than 60. Repeat blood cultures are pending. ASSESSMENT AND PLAN: My plan is to let the patient go if his repeat blood cultures are negative. He will be treated for a total of 6 weeks. I will have him come to my office at 3 weeks and then again at 6 weeks. After that, we may want to put the patient on a low dose of another antibiotic in case there is some residual infection on the prosthesis but given the patient's age, that may not be the best action to do. COMORBIDITIES: The patient is elderly and he is obese. He also has gastroesophageal reflux disease, diabetes mellitus, and bladder tumors. cc: Christian Do MD
[2018-11-01] MEDS: LIPITOR PO SCH (20:10)
[2018-11-01] MEDS: ZOFRAN IV PRN (22:13)
[2018-11-02] MEDS: HUMULIN R SUBQ SCH ×2 (05:59→11:54)
[2018-11-02 08:10] LABS: BASO# 0.02 X1000 (0.0-0.2); BASO% 0.2 % (0.0-0.8); EOS# 0.16 X1000 (0.0-0.7); EOS% 1.8 % (0.0-10.0); HEMOGLOBIN 12.6 g/dL (14.0-18.0); IMM GRAN# 0.04 X1000 (0.0-0.04); IMM GRAN% 0.4 % (0.0-0.5); LYMPH# 1.22 X1000 (1.2-3.4); LYMPH% 13.7 % (20.5-51.1); MCH 28.9 PG (27-31); MCHC 33.2 g/dL (33-37); MCV 87.2 FL (81-99); MONO# 0.85 X1000 (0.11-0.59); MONO% 9.5 % (1.7-9.3); MPV 9.2 FL (7.4-10.4); NEUT# 6.64 X1000 (1.4-6.5); NEUT% 74.4 % (42.2-75.2); PLT 315 X1000 (130-400); RBC 4.36 XMIL (4.7-6.1); RDW 13.1 % (11.5-14.5); WBC 8.93 X1000 (4.8-10.8)
[2018-11-02] MEDS: NS 1,000 ML IV SCH (08:19)
[2018-11-02] MEDS: NORVASC PO SCH (08:20)
[2018-11-02] MEDS: LOVENOX SUBQ SCH (08:20)
[2018-11-02] MEDS: LEVAQUIN PO SCH (08:20)
[2018-11-02] MEDS: ASPIRIN PO SCH (08:20)
[2018-11-02] MEDS: PRILOSEC PO SCH (08:20)
[2018-11-02] MEDS: HYDROCHLOROTHIAZIDE PO SCH (08:20)
[2018-11-02] MEDS: FLOMAX PO SCH (08:20)
[2018-11-02] MEDS: MIRALAX PO SCH (08:21)
[2018-11-02 08:29] LABS: AGAP 12; BUN 12 mg/dL (8-22); CALCIUM 8.9 mg/dL (8.8-10.2); CHLORIDE 97 mmol/L (98-107); COSMO 280; CREATININE 0.9 mg/dL (0.7-1.2); ESTIMATED GFR > 60; GLUCOSE 218 mg/dL (70-104); POTASSIUM 3.7 mmol/L (3.5-5.1); SODIUM 137 mmol/L (136-145); TCO2 28 mmol/L (25-35)
--- NOTE | 2018-11-02 12:18 | DISCHARGE SUMMARY ---
ADMISSION DATE: 10/29/2018 DISCHARGE DATE: 11/02/2018 ADMITTING DIAGNOSES: 1. Urinary tract infection with signs of sepsis and normal lactate. 2. Hypertension. 3. Hyperlipidemia. 4. Gastroesophageal reflux disease. 5. Diabetes mellitus type 2. DISCHARGE DIAGNOSES: 1. Escherichia coli bacteremia in the urine and in the blood. He will be sent home on Levaquin. 2. Hypertension, stable. 3. Hyperlipidemia. 5. Gastroesophageal reflux disease. CONSULTATIONS: 1. Dr. Tito Rahman. 2. Dr. Christian Do. PROCEDURES OR SURGERIES: None. HOSPITAL COURSE: Mr. Magdaleno Casey is a 78-year-old male with a medical history of urothelial carcinoma and left ureteral reimplant. He most recently had a bladder tumor removed on 10/10/[address] Rahman. He came in with complaint of 1 week's worth of burning with urination, frequency and small volumes, and for 3 days had chills with dry cough. Elevated white blood cell count of 20,000 with a normal lactate. He was tachycardic. He was transferred to the Medical Floor with IV antibiotics, and at that time, Dr. Rahman was consulted for any further recommendations. Antibiotic he was initiated on was Zosyn. Dr. Rahman' recommendation was to continue antibiotics, Flomax and IV fluids. Blood cultures came back with E. Coli bacteremia along with urinary culture coming back with E. Coli. The patient at that time was switched from Zosyn to cefepime by Dr. Do. Dr. Do ordered a renal CT to rule out any sort of blockage or abscess, which the imaging revealed chronic hydronephrosis on the left, but the possibility of bladder outlet obstruction could not be excluded, and there was worsening prostatic enlargement. Given the history of knee arthroplasty, the patient was going to require 6 weeks of treatment for the bacteremia per Dr. Do. There were no further notes by Dr. Rahman. Vital signs remained stable. The patient will be discharged home with oral antibiotics of Levaquin for at least 6 weeks. DISCHARGE VITAL SIGNS: Temperature is 97.7, heart rate 86, respiratory rate 18 , blood pressure 149/81, O2 saturation 97%. DISCHARGE LAB DATA: White blood cells 8000, hemoglobin 12, hematocrit 38, platelet count 315. Sodium is 137, potassium 3.7, BUN is 12, creatinine 0.9, glucose 218, calcium 8.9. PERTINENT IMAGING: Chest x-ray on 10/29/[address] on with chronic left hydronephrosis, possibility of bladder outlet obstruction could not be excluded, and he had worsening prostatic enlargement. DISCHARGE MEDICATIONS: Norvasc 10 mg p.o. daily, aspirin 81 mg p.o. daily, Lipitor 10 mg p.o. daily, hydrochlorothiazide 25 mg p.o. daily, metformin 500 mg p.o. twice daily, Flomax 0.4 mg p.o. twice daily, MiraLAX 17 g p.o. twice daily, Levaquin p.o. for 6 weeks due to history of knee replacement to treat the E. Coli bacteremia and E. Coli urinary tract infection. DISCHARGE DIET: Healthy heart, diabetic. DISCHARGE ACTIVITY: As tolerated. PHYSICIAN FOLLOWUPS: Dr. Do and Dr. Rahman and his primary, Dr. Torres. DISCHARGE INSTRUCTIONS: Please take antibiotics as prescribed and report any changes in bladder and urination or any sign of fever or infection. DISCHARGE DISPOSITION: Home with [facility], it looks like [facility]. Dictated by SABIHA Choi for Clive Enriquez MD Addendum: Patient seen and examined by myself. Agree with SABIHA note. It reflects my assessment and plan. Patient is being discharged in stable condition. Will be seen by Dr. Do in 2 weeks. cc: SABIHA Choi MD [facility]
[2018-11-02 12:56] VITALS: BP 141/73
--- NOTE | 2018-11-02 15:03 | INFECTIOUS DISEASE PROGRESS NO ---
DATE: 11/02/2018 PRESENT ILLNESS: The patient has an E coli urinary tract infection and an associated bacteremia. The patient has a left total knee arthroplasty in place and this could have become infected hematogenously. MEDICATIONS: The patient is on Levaquin. PHYSICAL EXAMINATION: Vital Signs: Temperature is 97.7 degrees, pulse 80, respirations 14, blood pressure 149/81. General: This is a somewhat ill-appearing, obese, elderly male. He is in no acute distress. Head/eyes/ears/nose/throat: He can hear my spoken words and see near objects. He does not have any white patches on his tongue. Neck: No meningismus. Lungs: Clear to auscultation. Cardiovascular: Regular heart rate. Abdomen: Soft and nontender. Extremities: The patient's left knee is not swollen and it is not painful with movement. Neurologic: Patient is awake. He can move his extremities. There is no tremor. LAB AND X-RAY: There is no new radiographic study. The creatinine is 0.9, GFR is greater than 60. CBC shows a white count of 8930, hemoglobin 12.6, and platelet count 315,000. Patient's blood cultures are sterile at this time. ASSESSMENT AND PLAN: We are planning on having the patient go home on Levaquin 500 mg daily for a total of 6 weeks in case the patient's knee prosthesis became infected while he was bacteremic. I will have the patient come to the office at 3 weeks and then again at 6 weeks and at the end that, most likely I will switch the patient to Keflex 500 mg p.o. every 12 hours on a long-term basis in order to provide the Escherichia coli from flaring up on the patient's knee. Dr. Rahman is going to be managing the patient's urologic status. COMORBIDITIES: He is elderly. He has gastroesophageal reflux disease, diabetes mellitus, and bladder tumors. cc: Christian Do MD
== END 2018-11-02 17:45 | disposition home health service (06) | DRG 872 ==
LOC: ED 07:08 → EDIPHOLD 11:46 → SUATTDRO 11:46 → 3N 13:09
PROVIDERS: ATTEND Internal Medicine
CPT/HCPCS: 71010; 71045; 74176; 80048; 80053; 80061; 81001; 82948; 83036; 83605; 83721; 83735; 85025; 85610; 85730; 87040; 87077; 87088; 87186; 87275; 87276; 87804; 94761; 96365; 96375; 99285; A9270; J0692; J1650; J2405; J2543; J7030; XXXXX